=== PATIENT | female | born 1995 | race American Indian/Alaskan Native ===

== ENCOUNTER 2018-06-24 19:54 | Emergency (ER) | payer OTHER ==
[2018-06-24 20:40] VITALS: BP 110/72
[2018-06-24] MEDS ORDERED: NACL 0.9% 1000 ML 1,000 ML ONE (20:42)
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
== END 2018-06-25 01:07 | disposition home or self-care (01) ==
LOC: EDBD → ED 19:54
DX: S16.1XXA Strain of muscle, fascia and tendon at neck level, initial encounter (principal); S39.012A Strain of muscle, fascia and tendon of lower back, initial encounter; Z90.89 Acquired absence of other organs; V87.7XXA Person injured in collision between other specified motor vehicles (traffic), initial encounter; Y93.89 Activity, other specified; Y92.488 Other paved roadways as the place of occurrence of the external cause; Y99.8 Other external cause status
CPT/HCPCS: 99282; J7030